=== PATIENT | female | born 1995 | race Two or more races ===

== ENCOUNTER 2021-03-20 17:19 | Emergency (ER) | payer BC, OTHER ==
[~2021-03-20] VITALS: Ht 160 cm; Wt 83.5 kg
[2021-03-20 18:21] LABS: Urine Bacteria FEW /hpf (None Seen); Urine Blood 3+ /uL (Negative); Urine Specific Gravity 1.007 (1.001-1.035); Urine WBC 2 /hpf (0 - 5)
[2021-03-21] MEDS ORDERED: ONDANSETRON ODT 4 MG TAB PO ONE (04:15)
[2021-03-21] MEDS ORDERED: HYDROcodone-ACET 5/325MG TAB PO ONE (04:15)
[2021-03-21 04:48] VITALS: BP 121/60
== END 2021-03-21 05:00 | disposition home or self-care (01) ==
LOC: ER 17:19
DX: O20.0 Threatened abortion (principal); Z3A.00 Weeks of gestation of pregnancy not specified
CPT/HCPCS: 36415; 76801; 76817; 81001; 81025; 84702; 99284; Q0162